=== PATIENT | female | born 1980 | race Hispanic/Latino ===

== ENCOUNTER 2020-07-06 19:15 | Emergency (ER) | payer MEDICARE ==
[~2020-07-06] VITALS: Ht 162.6 cm; Wt 77.1 kg
[2020-07-06] MEDS ORDERED: AMOXICILLIN500 MG PO (19:52)
[2020-07-06] MEDS ORDERED: ACETAMINOPHEN500 MG PO (19:52)
[2020-07-06] MEDS ORDERED: OFLOXACIN5 ML OT (19:52)
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
== END 2020-07-06 20:28 | disposition home or self-care (01) ==
LOC: FSED 19:45
DX: H66.91 Otitis media, unspecified, right ear (principal)
CPT/HCPCS: 99282